=== PATIENT | male | born 1960 | race Caucasian/White ===

== ENCOUNTER → 2016-12-18 | Outpatient (CLI) | payer OTHER ==
--- NOTE | 2016-12-18 14:41 | PCVCIMAG ---
APPROVED REPORT Exam: Stress Echocardiogram Indication: Hyperlipidemia, Hypertension, Chest pain Patient Location: Echo lab Stress Nurse: Codie Soriano RN Status: routine HR: 68 bpm Rhythm: NSR Medical History Medical History: HTN, Hyperlipidemia, Obesity Cardiac Risk Factors: HTN, Hyperlipidemia, male,obesity,family hx Pretest Chest Pain Characteristics: No chest pain Exercise History: Physically active Procedure The patient underwent an Exercise Stress Test using the Jaspreet Protocol. Blood pressure, heart rate, and EKG were monitored. An Echocardiogram was performed by sleep technician in four stages in quad fashion. At peak stress, four selected images were obtained and placed side by side with resting images for comparison. Stress Test Details Stress Test: Exercise stress testing was performed using a Jaspreet protocol. HR Resting HR: 68 bpmMax Heart Rate (APMHR): 164 bpm Max HR Achieved: 157 bpmTarget HR (85% APMHR): 139 bpm % of APMHR: 95 Recovery HR: 107 bpm HR response to stress: Normal HR response to stress BP Resting BP: 144/90 mmHg Max BP: 180/90 mmHg Recovery BP: 180/90 mmHg ECG Resting ECG: Sinus Rhythm Stress ECG: Sinus Rhythm, nonspecific ST-T wave changes ST Change: Upsloping ST depression Maximum ST Deviation: 1.75 mm Arrhythmia: Rare VPC's Recovery ECG: Sinus Rhythm Recovery ST Change: Upsloping ST depression, Normal Recovery Arrhythmia: None Clinical Reason for Termination: Maximal effort Stress Symptoms: none Exercise duration: 6 min sec Highest Stage Achieved: Stage 2: 2.5 mph at 12% grade. Exercise capacity: 7 METs Overall Exercise Capacity for Age: Poor Angina Score: None Stress ECG Conclusion Petty Treadmill Score is -2.8 which is Moderate risk. Pre-Stress Echo The resting Echocardiogram showed normal left ventricular contractility with an estimated Ejection Fraction of about >55%. Normal wall motion in all segments on baseline images. Post-Stress Echo The stress Echocardiogram showed normal left ventricular contractility with an estimated Ejection Fraction of about 65-70%. Normal augmentation of wall motion in all segments on post stress images. Clinical No clinical or ECG evidence for ischemia. Conclusion Clinical Response: Non-ischemic Exercise Capacity: Below Average Stress ECG Response: Non-ischemic Stress Echo Images: Non-ischemic Normal stress echocardiogram with maximal exercise stress. No clinical, EKG or echocardiographic evidence for ischemia. No echocardiographic evidence for exercise induced ischemia. <Conclusion> Normal stress echocardiogram with maximal exercise stress. No clinical, EKG or echocardiographic evidence for ischemia. No echocardiographic evidence for exercise induced ischemia.
== END | disposition home or self-care (01) ==
LOC: PCVCIMAG 10:01
PROVIDERS: ATTEND Internal Medicine Cardiovascular Disease
DX: I10 Essential (primary) hypertension (principal); E78.5 Hyperlipidemia, unspecified; Z82.49 Family history of ischemic heart disease and other diseases of the circulatory system
CPT/HCPCS: 93325; 93351